=== PATIENT | female | born 1940 | race Caucasian/White ===

== ENCOUNTER → 2017-10-18 | Outpatient (CLI) | payer MEDICARE, OTHER ==
[2017-10-18 09:12] LABS: AUTOMATED NEUTROPHIL # 3.5 TH/MM3 (1.8-7.7); BASOPHIL % 0.5 % (0.0-2.0); EOSINOPHIL # 0.2 TH/MM3 (0-0.4); EOSINOPHIL % 3.8 % (0.0-4.0); HEMATOCRIT 42.9 % (35.0-46.0); HEMO FLAGS DIFF FINAL; LYMPH % 29.7 % (9.0-44.0); LYMPHOCYTE # 1.8 TH/MM3 (1.0-4.8); MEAN CELL VOLUME 89.7 FL (80.0-100.0); MEAN CORPUSCULAR HEMOGLOBIN 29.3 PG (27.0-34.0); MEAN CORPUSCULAR HGB CONC 32.6 % (32.0-36.0); MEAN PLATELET VOLUME 7.6 FL (7.0-11.0); MONO % 10.5 % (0.0-8.0); MONOCYTE # 0.7 TH/MM3 (0-0.9); NEUT % 55.5 % (16.0-70.0); PLATELET COUNT 276 TH/MM3 (150-450); RED BLOOD COUNT 4.78 MIL/MM3 (4.00-5.30); RED CELL DISTRIBUTION WIDTH 13.1 % (11.6-17.2); WHITE BLOOD COUNT 6.2 TH/MM3 (4.0-11.0)
[2017-10-18 09:15] LABS: BACTERIA, URINE OCC /hpf; BILIRUBIN, URINE NEG (NEG); BLOOD, URINE TRACE (NEG); COMMENT (UR) CULT NOT INDICATED; CULTURE IF INDICATED CULT NOT INDICATED; GLUCOSE,URINE NEG (NEG); KETONE, URINE NEG (NEG); MUCUS URINE FEW /lpf (OCC); NITRITE,URINE NEG (NEG); SQUAMOUS EPITHELIAL CELL URINE <1 /hpf (0-5); URINE COLOR LIGHT-YELLOW (YELLW/STRAW); URINE LEUKOCYTE ESTERASE TRACE (NEG)
[2017-10-18 09:21] LABS: APTT (PATIENT) 24.4 SEC (24.3-30.1)
[2017-10-18 09:39] LABS: ALBUMIN 3.7 GM/DL (3.4-5.0); ANION GAP 5 MEQ/L (5-15); AST (GOT) 23 U/L (15-37); BICARBONATE 28.5 MEQ/L (21.0-32.0); BLOOD UREA NITROGEN 14 MG/DL (7-18); CALCIUM 9.3 MG/DL (8.5-10.1); CHLORIDE 103 MEQ/L (98-107); CREATININE 0.91 MG/DL (0.50-1.00); GLOMERULAR FILTRATION RATE 60 ML/MIN (>89); GLUCOSE,FASTING 92 MG/DL (74-99); POTASSIUM 4.2 MEQ/L (3.5-5.1); SODIUM (NA) 136 MEQ/L (136-145)
[2017-10-18 09:40] LABS: ALT (GPT) 22 U/L (10-53)
[2017-10-18 09:42] LABS: ALKALINE PHOSPHATASE 96 U/L (45-117); TOTAL BILIRUBIN ADULT 0.4 MG/DL (0.2-1.0); TOTAL PROTEIN 7.8 GM/DL (6.4-8.2)
== END ==
LOC: CPRE 08:23
DX: Z79.01 Long term (current) use of anticoagulants (principal); N82.3 Fistula of vagina to large intestine
CPT/HCPCS: 36415; 71046; 80053; 81001; 85025; 85610; 85730; 93005

== ENCOUNTER 2017-10-25 11:38 | Inpatient (IN) | payer MEDICARE, OTHER ==
[~2017-10-25] VITALS: Ht 165.1 cm; Wt 90.1 kg
[~2017-10-25 11:38] MED LIST: IBUP-1129 PO; METO25TA3 PO; OMEP20TA93 PO
[2017-10-25] MEDS ORDERED: ALVIMOPAN 12 MG CAPSULE - On Call PO SCH (12:45)
[2017-10-25] MEDS ORDERED: METOPROLOL TARTRATE 25 MG TAB PO PRN (12:45)
[2017-10-25] MEDS ORDERED: CHLORHEXIDINE GLUCONATE 2 % 1 PACK (2 CLOTHS) TOPICAL PRN (12:45)
[2017-10-25] MEDS ORDERED: LACTATED RINGER'S 1000 ML IV PRN (12:45)
[2017-10-25] MEDS ORDERED: SODIUM CHLORID 0.9% 500 ML IV PRN (12:45)
[2017-10-25] MEDS ORDERED: INSULIN HUMAN REGULAR 1,000 UNITS/10 ML VIAL SQ PRN (12:45)
[2017-10-25] MEDS ORDERED: ceFAZolin INJ 1,000 MG VIAL ONE (12:51)
[2017-10-25] MEDS ORDERED: SODIUM CHLORIDE 0.9% INJ 100 ML ONE (12:51)
[2017-10-25] MEDS ORDERED: metroNIDAZOLE 500 MG INJ 100 ML IV ONE (12:51)
[2017-10-25] MEDS ORDERED: DEXT 5%-NACL 0.9% 1000 ML INJ 1,000 ML IV SCH (13:00)
[2017-10-25] MEDS ORDERED: METRONIDAZOLE 500 MG/100 ML ISONTONIC SOLN IV SCH (13:00)
[2017-10-25] MEDS ORDERED: ceFAZolin 1,000 MG/NS 100 ML IV SCH ×2 (13:00)
[2017-10-25] MEDS ORDERED: ASPI-516 PO (13:01)
[2017-10-25] MEDS ORDERED: APREPITANT 40 MG CAP PO ONE (13:45)
--- NOTE | 2017-10-25 14:31 | PD.OP ---
Operative Report Date of Surgery: Oct 25, 2017 Preoperative Diagnosis: Colovaginal fistula Postoperative Diagnosis: Same Procedure: Cystoscopy and bilateral ureteral catheter placement Anesthesia: LENI Surgeon: Christoph Saavedra [employer] Professor(s): None Resident Surgeon: None Operation and Findings: 77-year-old female with history of a colovesical fistula. Requests were made for bilateral ureteral catheter placements prior to exploratory laparotomy. Patient was prepped in the usual sterile fashion and placed in the dorsal lithotomy position. She received preprocedure bites and general endotracheal tube anesthesia was administered. 22 Thai scope was inserted in the bladder jackson cystoscopy did not reveal any abnormalities. The left ureteral orifices identified and a 5 Thai catheter was inserted into left ureteral orifice and up into the kidney. This was performed on the right side without difficulty. The catheters were then attached the Danielson. She tolerated procedure well. Christoph Saavedra DO Oct 25, 2017 14:31
[2017-10-25] MEDS ORDERED: ACETAMINOPHEN 1000 MG/100 ML 100 ML IV ONE (15:29)
[2017-10-25] MEDS ORDERED: PCA - TOTAL MG MORPHINE DELIVERED PER SHIFT SCH (16:00)
[2017-10-25] MEDS ORDERED: SODIUM CHLORIDE 0.9% FLUSH 10 ML FLUSH IV FLUSH PRN (16:00)
[2017-10-25] MEDS ORDERED: ACETAMINOPHEN/HYDROcodone 325 MG/5 MG TAB PO PRN (16:15)
[2017-10-25] MEDS ORDERED: Post-op Orders (for Pharmacy) XX ONE (16:15)
[2017-10-25] MEDS ORDERED: NALOXONE HCL 0.4 MG/ML AMP IV PUSH PRN (16:15)
[2017-10-25] MEDS ORDERED: DO NOT ADM ANY ANTICOAGULANT DRUGS PRN (16:16)
[2017-10-25] MEDS ORDERED: *ONDANSETRON 4 MG VIAL PERIprocedural Use ONLY ONE (16:28)
[2017-10-25] MEDS ORDERED: *morphine SULFATE 10 MG/ML PERIprocedure ONLY ONE ×2 (16:28→16:48)
[2017-10-25] MEDS ORDERED: POTASSIUM CHLOR 20 MEQ PREMIX 100 ML IV PRN (16:30)
[2017-10-25] MEDS: D5-LR + KCL 20 MEQ INJ 1,000 ML IV SCH ×2 (16:30→17:30)
[2017-10-25] MEDS ORDERED: BENZOCAINE 6 MG/MENTHOL 10 MG LOZENGE BUCCAL PRN (16:30)
[2017-10-25] MEDS ORDERED: POTASSIUM CHLOR 40 MEQ PREMIX 100 ML IV PRN (16:30)
[2017-10-25] MEDS ORDERED: MORPHINE SULFATE 30 MG/30 ML PCA IV SCH (16:30)
[2017-10-25] MEDS ORDERED: MORPHINE SULFATE 4 MG/ML INJ ONE (16:37)
[2017-10-25] MEDS ORDERED: *PROMETHAZINE 25 MG/ML VIAL PERIprocedural use ONLY ONE (16:48)
[2017-10-25] MEDS: ASPIRIN 81 MG CHEW TAB PO SCH (17:00)
[2017-10-25] MEDS ORDERED: HYDROmorphone HCL PF 2 MG/ML VIAL ONE (17:18)
[2017-10-25 17:19] LABS: AUTOMATED NEUTROPHIL # 12.9 TH/MM3 (1.8-7.7); BASOPHIL % 0.3 % (0.0-2.0); EOSINOPHIL # 0.1 TH/MM3 (0-0.4); EOSINOPHIL % 0.6 % (0.0-4.0); HEMATOCRIT 42.6 % (35.0-46.0); HEMOGLOBIN 14.4 GM/DL (11.6-15.3); LYMPH % 12.9 % (9.0-44.0); LYMPHOCYTE # 2.1 TH/MM3 (1.0-4.8); MEAN CELL VOLUME 89.3 FL (80.0-100.0); MEAN CORPUSCULAR HEMOGLOBIN 30.2 PG (27.0-34.0); MEAN CORPUSCULAR HGB CONC 33.8 % (32.0-36.0); MEAN PLATELET VOLUME 8.3 FL (7.0-11.0); MONO % 7.2 % (0.0-8.0); MONOCYTE # 1.2 TH/MM3 (0-0.9); PLATELET COUNT 245 TH/MM3 (150-450); RED BLOOD COUNT 4.77 MIL/MM3 (4.00-5.30); RED CELL DISTRIBUTION WIDTH 13.7 % (11.6-17.2); WHITE BLOOD COUNT 16.4 TH/MM3 (4.0-11.0)
[2017-10-25 17:25] LABS: BICARBONATE 23.8 MEQ/L (21.0-32.0); CALCIUM 7.5 MG/DL (8.5-10.1); CREATININE 0.66 MG/DL (0.50-1.00)
[2017-10-25] MEDS: FUROSEMIDE 20 MG/2 ML VIAL IV PUSH SCH (17:37)
[2017-10-25] MEDS: METOCLOPRAMIDE HCL 10 MG/2 ML VIAL IVS SCH (17:38)
[2017-10-25] MEDS ORDERED: *MEPERIDINE 25 MG INJ VIAL PERIprocedural Use ONLY ONE (18:43)
[2017-10-25 20:45] VITALS: BP 109/58; PULSE 65; RESP 16; TEMP 97.7; O2SAT 98
[2017-10-25 21:00] VITALS: BP 113/56; PULSE 66; RESP 16; TEMP 98; O2SAT 100
[2017-10-25] MEDS: SODIUM CHLORIDE 0.9% FLUSH 10 ML FLUSH IV FLUSH SCH (21:00)
[2017-10-25 22:00] VITALS: BP 85/48; PULSE 64; O2SAT 98
[2017-10-25 22:15] VITALS: BP 84/50; PULSE 66; O2SAT 98
[2017-10-25 22:30] VITALS: BP 80/44; PULSE 66; O2SAT 97
[2017-10-25 23:00] VITALS: BP 110/53; PULSE 66; RESP 16; TEMP 98; O2SAT 97
[2017-10-25] MEDS: metroNIDAZOLE 500 MG INJ 100 ML IV SCH (23:20)
[2017-10-26] VITALS (16 sets, daily range): BP systolic 99–153; BP diastolic 50–68; PULSE 58–73; RESP 16–18; TEMP 97.8–99.2; O2SAT 93–98
[2017-10-26] MEDS: METOCLOPRAMIDE HCL 10 MG/2 ML VIAL IVS SCH ×5 (01:17→23:48)
[2017-10-26 06:11] LABS: AUTOMATED NEUTROPHIL # 11.8 TH/MM3 (1.8-7.7); BASOPHIL % 0.2 % (0.0-2.0); HEMATOCRIT 39.7 % (35.0-46.0); HEMOGLOBIN 13.1 GM/DL (11.6-15.3); LYMPH % 7.4 % (9.0-44.0); MEAN CELL VOLUME 89.6 FL (80.0-100.0); MEAN CORPUSCULAR HEMOGLOBIN 29.7 PG (27.0-34.0); MEAN CORPUSCULAR HGB CONC 33.1 % (32.0-36.0); MEAN PLATELET VOLUME 7.7 FL (7.0-11.0); MONO % 8.2 % (0.0-8.0); MONOCYTE # 1.1 TH/MM3 (0-0.9); NEUT % 84.2 % (16.0-70.0); PLATELET COUNT 254 TH/MM3 (150-450); RED BLOOD COUNT 4.43 MIL/MM3 (4.00-5.30); RED CELL DISTRIBUTION WIDTH 13.7 % (11.6-17.2); WHITE BLOOD COUNT 13.9 TH/MM3 (4.0-11.0)
[2017-10-26] MEDS: metroNIDAZOLE 500 MG INJ 100 ML IV SCH ×2 (06:42→14:45)
[2017-10-26 06:50] LABS: BICARBONATE 28.7 MEQ/L (21.0-32.0); CALCIUM 7.9 MG/DL (8.5-10.1); CREATININE 0.99 MG/DL (0.50-1.00)
[2017-10-26] MEDS: SODIUM CHLORIDE 0.9% FLUSH 10 ML FLUSH IV FLUSH SCH ×2 (08:23→20:36)
[2017-10-26] MEDS: METOPROLOL TARTRATE 25 MG TAB PO SCH (08:23)
[2017-10-26] MEDS: PANTOPRAZOLE SODIUM 40 MG VIAL IVP SCH (08:23)
[2017-10-26] MEDS: ASPIRIN 81 MG CHEW TAB PO SCH (08:23)
[2017-10-26] MEDS: FUROSEMIDE 20 MG/2 ML VIAL IV PUSH SCH ×2 (08:25→18:07)
[2017-10-26] MEDS ORDERED: ALVIMOPAN 12 MG CAPSULE - Post-op dosing PO SCH (09:00)
[2017-10-26] MEDS: KETOROLAC TROMETHAMINE 30 MG/ML (IVP) VIAL IVP PRN (14:53)
--- NOTE | 2017-10-26 15:57 | HHI.PR ---
Subjective Remarks No N or V. No BMs. C/O pain. Objective Vital Signs Date Time Temp Pulse Resp B/P (MAP) Pulse Ox O2 Delivery O2 Flow Rate FiO2 10/26/17 15:01 99.2 61 18 153/68 (96) 96 10/26/17 15:01 63 10/26/17 14:00 62 10/26/17 13:00 60 10/26/17 12:00 58 10/26/17 11:45 97.9 61 18 99/54 (69) 96 10/26/17 11:00 60 10/26/17 10:00 66 10/26/17 09:00 70 10/26/17 08:33 96 Nasal Cannula 2.00 10/26/17 08:01 97.8 69 18 101/50 (67) 97 10/26/17 08:00 68 10/26/17 07:01 73 10/26/17 04:00 67 16 115/56 (75) 98 10/26/17 03:30 98.4 68 16 107/53 (71) 93 10/25/17 23:00 98.0 66 16 110/53 (72) 97 10/25/17 22:30 66 80/44 (56) 97 10/25/17 22:15 66 84/50 (61) 98 10/25/17 22:00 64 85/48 (60) 98 10/25/17 21:00 98.0 66 16 113/56 (75) 100 10/25/17 20:45 97.7 65 16 109/58 (75) 98 10/25/17 20:00 62 12 122/58 (79) 100 Nasal Cannula 3 10/25/17 19:00 97.6 61 12 96/51 (66) 100 Nasal Cannula 3 10/25/17 18:00 58 12 161/77 (105) 100 Nasal Cannula 3 10/25/17 17:55 14 10/25/17 17:30 55 14 159/70 (99) 97 Nasal Cannula 3 10/25/17 17:15 54 14 163/72 (102) 100 Nasal Cannula 3 10/25/17 17:00 53 13 162/70 (100) 100 Nasal Cannula 3 10/25/17 16:45 59 12 169/76 (107) 100 Nasal Cannula 3 10/25/17 16:30 62 14 170/79 (109) 100 Nasal Cannula 3 10/25/17 16:20 97.5 75 17 163/77 (105) 99 Nasal Cannula 3 I/O 10/25/17 10/25/17 10/25/17 10/26/17 10/26/17 10/26/17 07:00 15:00 23:00 07:00 15:00 23:00 Intake Total 3018 ml 0 ml Output Total 1750 ml 695 ml Balance 1268 ml -695 ml Intake Oral 0 ml IV Total 518 ml Other 2500 ml Output Urine Total 1400 ml 650 ml Drainage Total 150 ml 45 ml Estimated Blood Loss 200 ml Result Diagram: 10/26/1740810/26/17408 Objective Remarks VS-S Abd:Flat,soft,dressing dry I&Os-OK Labs-OK Assessment and Plan Assessment and Plan Stable. POD#1 Transfer to 7N. D/C tele. IV to 125, OOB. D/C FELT HOOKER and start PO pain meds. Ureteral catheter removed. D/C farzaneh in Patrick Porter MD Oct 26, 2017 15:57
[2017-10-26] MEDS: D5-LR + KCL 20 MEQ INJ 1,000 ML IV SCH ×2 (16:30→20:35)
[2017-10-26] MEDS: ALVIMOPAN 12 MG CAPSULE PO SCH (20:36)
[2017-10-26] MEDS: HEPARIN SODIUM - SQ 10,000 UNITS/ML VIAL SQ SCH (20:36)
[2017-10-27] VITALS (7 sets, daily range): BP systolic 121–164; BP diastolic 57–84; PULSE 62–82; RESP 16–20; TEMP 98–98.8; O2SAT 93–97
[2017-10-27] MEDS: D5-LR + KCL 20 MEQ INJ 1,000 ML IV SCH ×3 (00:30→16:30)
[2017-10-27] MEDS: KETOROLAC TROMETHAMINE 30 MG/ML (IVP) VIAL IVP PRN ×2 (02:14→20:35)
[2017-10-27 05:47] LABS: AUTOMATED NEUTROPHIL # 8.9 TH/MM3 (1.8-7.7); BASOPHIL % 0.3 % (0.0-2.0); EOSINOPHIL # 0.2 TH/MM3 (0-0.4); EOSINOPHIL % 1.9 % (0.0-4.0); HEMATOCRIT 34.9 % (35.0-46.0); HEMOGLOBIN 11.5 GM/DL (11.6-15.3); LYMPH % 17.1 % (9.0-44.0); LYMPHOCYTE # 2.2 TH/MM3 (1.0-4.8); MEAN CELL VOLUME 90.1 FL (80.0-100.0); MEAN CORPUSCULAR HEMOGLOBIN 29.6 PG (27.0-34.0); MEAN CORPUSCULAR HGB CONC 32.9 % (32.0-36.0); MEAN PLATELET VOLUME 7.5 FL (7.0-11.0); MONO % 10.2 % (0.0-8.0); MONOCYTE # 1.3 TH/MM3 (0-0.9); NEUT % 70.5 % (16.0-70.0); PLATELET COUNT 218 TH/MM3 (150-450); RED BLOOD COUNT 3.87 MIL/MM3 (4.00-5.30); RED CELL DISTRIBUTION WIDTH 13.5 % (11.6-17.2); WHITE BLOOD COUNT 12.7 TH/MM3 (4.0-11.0)
[2017-10-27] MEDS: METOCLOPRAMIDE HCL 10 MG/2 ML VIAL IVS SCH ×4 (05:54→23:03)
[2017-10-27 06:16] LABS: BICARBONATE 29.2 MEQ/L (21.0-32.0); CALCIUM 7.8 MG/DL (8.5-10.1); CREATININE 0.81 MG/DL (0.50-1.00)
--- NOTE | 2017-10-27 07:01 | HHI.PR ---
Subjective Remarks POD#2 LAR reports pain Objective Vital Signs Date Time Temp Pulse Resp B/P (MAP) Pulse Ox O2 Delivery O2 Flow Rate FiO2 10/27/17 04:50 98.1 62 18 125/57 (79) 96 10/27/17 00:00 98.2 70 18 159/71 (100) 97 10/26/17 19:35 98.5 65 18 104/56 (72) 97 10/26/17 16:01 65 10/26/17 15:01 99.2 61 18 153/68 (96) 96 10/26/17 15:01 63 10/26/17 14:00 62 10/26/17 13:00 60 10/26/17 12:00 58 10/26/17 11:45 97.9 61 18 99/54 (69) 96 10/26/17 11:00 60 10/26/17 10:00 66 10/26/17 09:00 70 10/26/17 08:33 96 Nasal Cannula 2.00 10/26/17 08:01 97.8 69 18 101/50 (67) 97 10/26/17 08:00 68 10/26/17 07:01 73 I/O 10/26/17 10/26/17 10/26/17 10/27/17 10/27/17 10/27/17 07:00 15:00 23:00 07:00 15:00 23:00 Intake Total 0 ml 100 ml 1060 ml 420 ml Output Total 695 ml 600 ml 1245 ml Balance -695 ml 100 ml 460 ml -825 ml Intake Oral 0 ml 960 ml 420 ml IV Total 100 ml 100 ml Output Urine Total 650 ml 575 ml 1175 ml Drainage Total 45 ml 25 ml 70 ml Result Diagram: 10/27/17 0457 10/27/17 0457 Objective Remarks Abdomen soft, nondistended, tender Wound clean QUINCY serosanguinous Assessment and Plan Assessment and Plan Mobilize Transfer to [facility] Advance diet Kelle Caba MD Oct 27, 2017 07:01
[2017-10-27] MEDS: HEPARIN SODIUM - SQ 10,000 UNITS/ML VIAL SQ SCH ×2 (08:15→20:32)
[2017-10-27] MEDS: ALVIMOPAN 12 MG CAPSULE PO SCH ×2 (08:15→20:32)
[2017-10-27] MEDS: ASPIRIN 81 MG CHEW TAB PO SCH (08:16)
[2017-10-27] MEDS: METOPROLOL TARTRATE 25 MG TAB PO SCH (08:16)
[2017-10-27] MEDS: PANTOPRAZOLE SODIUM 40 MG VIAL IVP SCH (08:17)
[2017-10-27] MEDS: SODIUM CHLORIDE 0.9% FLUSH 10 ML FLUSH IV FLUSH SCH ×2 (08:17→20:32)
[2017-10-27] MEDS: ACETAMINOPHEN/HYDROcodone 325 MG/5 MG TAB PO PRN ×3 (08:17→23:00)
[2017-10-27] MEDS: FUROSEMIDE 20 MG/2 ML VIAL IV PUSH SCH ×2 (08:33→17:18)
[2017-10-27] MEDS: ENALAPRILAT 1.25 MG/ML VIAL IV PUSH PRN (23:00)
[2017-10-28] VITALS (7 sets, daily range): BP systolic 106–165; BP diastolic 54–86; PULSE 65–82; RESP 16–20; TEMP 97.9–98.6; O2SAT 93–96
[2017-10-28] MEDS: ACETAMINOPHEN/HYDROcodone 325 MG/5 MG TAB PO PRN ×5 (04:20→23:58)
[2017-10-28] MEDS: D5-LR + KCL 20 MEQ INJ 1,000 ML IV SCH (04:20)
[2017-10-28] MEDS: KETOROLAC TROMETHAMINE 30 MG/ML (IVP) VIAL IVP PRN (04:28)
[2017-10-28] MEDS: METOCLOPRAMIDE HCL 10 MG/2 ML VIAL IVS SCH ×3 (05:58→16:34)
[2017-10-28] MEDS: ALVIMOPAN 12 MG CAPSULE PO SCH ×2 (08:16→20:43)
[2017-10-28] MEDS: HEPARIN SODIUM - SQ 10,000 UNITS/ML VIAL SQ SCH ×2 (08:16→20:44)
[2017-10-28] MEDS: PANTOPRAZOLE SODIUM 40 MG VIAL IVP SCH (08:16)
[2017-10-28] MEDS: SODIUM CHLORIDE 0.9% FLUSH 10 ML FLUSH IV FLUSH SCH ×2 (08:17→20:43)
[2017-10-28] MEDS: ASPIRIN 81 MG CHEW TAB PO SCH (08:17)
[2017-10-28] MEDS: METOPROLOL TARTRATE 25 MG TAB PO SCH (08:17)
[2017-10-28] MEDS: FUROSEMIDE 20 MG/2 ML VIAL IV PUSH SCH (09:00)
--- NOTE | 2017-10-28 10:38 | HHI.PR ---
Subjective Remarks POD#3 LAR 'better' Objective Vital Signs Date Time Temp Pulse Resp B/P (MAP) Pulse Ox O2 Delivery O2 Flow Rate FiO2 10/28/17 07:15 98.1 68 20 133/86 (102) 94 10/28/17 07:15 94 Room Air 10/28/17 03:50 98.0 65 16 134/61 (85) 94 10/28/17 00:08 106/54 (71) 10/27/17 23:00 Bi-Pap 10/27/17 23:00 98.0 67 16 164/74 (104) 96 10/27/17 19:45 98.7 69 16 163/76 (105) 95 10/27/17 19:45 95 Room Air 10/27/17 15:00 98.4 82 20 133/63 (86) 93 10/27/17 11:00 98.4 82 20 121/57 (78) 93 I/O 10/27/17 10/27/17 10/27/17 10/28/17 10/28/17 10/28/17 07:00 15:00 23:00 07:00 15:00 23:00 Intake Total 420 ml 890 ml 1198 ml Output Total 1245 ml 590 ml 1230 ml Balance -825 ml 300 ml -32 ml Intake Oral 420 ml 480 ml 480 ml IV Total 410 ml 718 ml Output Urine Total 1175 ml 550 ml 1200 ml Drainage Total 70 ml 40 ml 30 ml Bladder Scan Volume Amount 900 ml # Voids 3 # Bowel Movements 0 Result Diagram: 10/27/177 10/27/17456 Objective Remarks Abdomen soft, nondistended, tender Wound mild area of erythema - most likely secondary to binder QUINCY serosanguinous Assessment and Plan Assessment and Plan Mobilize Transfer to [facility] Advance diet Decrease IVF D/C Kelle Pan MD Oct 28, 2017 10:38
[2017-10-28] MEDS: ENALAPRILAT 1.25 MG/ML VIAL IV PUSH PRN ×2 (16:34→20:46)
--- NOTE | 2017-10-28 20:24 | MP ---
cc: QUENTIN RICE M.D., SHAWN TOLLAND, JOHN T. M.D. WADSWORTH, LYLE E. MD DATE OF SURGERY 10/25/2017 PREOPERATIVE DIAGNOSIS Probable colovaginal fistula. POSTOPERATIVE DIAGNOSIS Probable colovaginal fistula. PROCEDURE 1. Rectosigmoidectomy, LAR. 2. Repair of umbilical hernia. 3. Omental flap. 4. Proctosigmoidoscopy. ANESTHESIA General endotracheal. SURGEON Dr. Foss. [employer]ENT Dr. Sara Block MS-3 OPERATING TIME One hour and 40 minutes ESTIMATED BLOOD LOSS 25 mL. OPERATIVE FINDINGS This patient had an unusual history of a sinus tract or fistula from the posterior vagina just posterior to the cervix. She has not had a hysterectomy. She has not had any known bouts of diverticulitis but on CT scan she was found to have extensive diverticulosis and on colonoscopy by Dr. Quentin Rice she was found to have extensive diverticulosis in the sigmoid colon. Because it was felt that she probably had a colovaginal fistula even though she has not had a hysterectomy, resection was recommended and she was referred to ar by Dr. Quentin Rice and Dr. Amandeep Wilson. Dr. Christoph Saavedra placed bilateral ureteral catheters and exploration of the abdominal cavity revealed that the liver, the gallbladder, small bowel and the remainder of the colon were normal. She did have a loop of sigmoid colon that was mildly indurated sitting down in the cul-de-sac anterior to the rectum, posterior to the uterus and vagina, however, it did not at least seem to be firmly attached to the posterior wall of the vagina and it was easily delivered up out of the pelvis. Upon inspecting the posterior wall of the vagina there was an indentation and a divot there and there was an obvious hole that went toward the vaginal lumen and a tonsil clamp was placed in that hole and the peritoneum was opened and it protruded right at the site where the sinus tract was seen in the office. Dr. Ruiz did vaginoscopy and looked at it and there seemed to be a small opening there but when he insufflated air with saline solution in the pelvis no air leak was found to retrograde back into the pelvis. This was felt to be the fistula site and it was felt to have already been divided from the colon and since she had a moderate amount of sigmoid diverticulosis with chronic diverticulitis, a rectosigmoid ectopy was done with a colorectal anastomosis. Once this was completed the omentum had been previously mobilized from the transverse colon and an omental flap was placed down between the colorectal anastomosis and the vagina. The vaginal area was not treated in any other way, it was not sutured, it was simply left alone to seal on its own. OPERATIVE TECHNIQUE The patient was placed on the table in supine position after adequate general endotracheal anesthesia. The legs were placed in the perineal lithotomy position and the abdomen and perineum were prepped and draped in usual manner. Transverse infraumbilical skin incision was made and carried down through subcutaneous tissue and the rectus muscles and the peritoneal cavity was entered with above-mentioned findings. Next our attention was turned to the sigmoid which was delivered up out of the pelvis and Dr. Ruiz did a vaginoscopy and looked in the vagina and found the site where this same apparent fistula in the pelvis was seen in the posterior vaginal wall. It did not seem to penetrate fully through and we did not completely create a fistula there. Once this was done we mobilized the sigmoid and descending colon and splenic flexure and transverse colon and the omentum was mobilized from the transverse colon as mentioned above entering the lesser sac. The full splenic flexure was mobilized as well and then our attention was turned to the inferior mesenteric artery which is doubly clamped, cut, and doubly ligated with 0 Vicryl ligature and then the inferior mesenteric vein was clamped, cut and ligated as well. The lateral pelvic perineum was incised bilaterally and the retrorectal space was entered and the dissection was taken down in the pelvis posteriorly to almost the pelvic floor. Anteriorly the dissection was taken down laterally and anteriorly to the cul-de-sac but not entering the cul-de-sac or the retroperitoneal portion of the anterior rectum. A division point in the rectum was chosen in the mid to upper rectum and the mesorectum was successively clamped, cut and ligated and the rectum was cleared and pursestring stapling device was placed on the rectum. We then chose a point for division of the sigmoid colon and the remainder of the sigmoid mesentery was clamped, cut and ligated ligating the marginal vessel as well. Sigmoid colon was then divided and the pursestring stapling device was placed prior to that. The anvil of the 29 ILS stapling device was placed in the bowel and the pursestring was tied and then the ILS device was placed transanally by Dr. Ruiz and the distal pursestring was tied and the instruments connected, closed and fired creating a circular anastomosis. The blood supply to the bowel was excellent and there was no tension on the bowel. Dr. Ruiz then did proctosigmoidoscopy examination insufflating air into the rectum with saline solution in the pelvis and no air leaks were identified. We then irrigated out the abdominal cavity and the pelvis with saline solution using several liters and it was aspirated dry. A number flat 10 Darian drain was placed down in the pelvis and brought out through a separate stab wound in the right lower quadrant and then the bowels were replaced in the abdominal contents in an inside sales coordinator manner and the abdominal contents were closed in two layers using a double-stranded #1 PDS for the posterior rectus sheath and double-stranded #1 PDS for the anterior rectus sheath irrigating between those layers. Next subcutaneous tissue was irrigated thoroughly with saline solution, aspirated dry and the skin was closed with running 3-0 Vicryl subcuticular suture. Prior to closure of the abdomen the omental flap was taken down the left colic gutter and placed between the bowel anastomosis and the posterior wall of the vagina to make sure that the fistula closed. Sponge, needle and instrument counts were reported as correct. Estimated blood loss was 25 mL. Operating time was 1 hour and 40 minutes. It should be mentioned that she had an umbilical hernia and prior to closure, the umbilical hernia was repaired with several interrupted #1 PDS sutures in a [id number] manner. Once this hernia was closed then the abdominal cavity was closed as mentioned above. The patient tolerated the procedure well and left the operating room in good condition. MD LISSETTE Kirby/GUERLINE /6:20 PM /7:16 PM
[2017-10-29 04:39] VITALS: BP 131/65; PULSE 88; RESP 18; TEMP 98.6; O2SAT 92
[2017-10-29] MEDS: ACETAMINOPHEN/HYDROcodone 325 MG/5 MG TAB PO PRN ×2 (04:47→08:55)
[2017-10-29] MEDS: METOCLOPRAMIDE HCL 10 MG/2 ML VIAL IVS SCH ×2 (06:00)
[2017-10-29 07:00] VITALS: BP 159/71; PULSE 78; RESP 17; TEMP 98.4; O2SAT 93
[2017-10-29] MEDS: D5-LR + KCL 20 MEQ INJ 1,000 ML IV SCH (08:49)
[2017-10-29] MEDS: METOPROLOL TARTRATE 25 MG TAB PO SCH (08:53)
[2017-10-29] MEDS: PANTOPRAZOLE SODIUM 40 MG VIAL IVP SCH (08:54)
[2017-10-29] MEDS: ASPIRIN 81 MG CHEW TAB PO SCH (08:54)
[2017-10-29] MEDS: ALVIMOPAN 12 MG CAPSULE PO SCH (08:54)
[2017-10-29] MEDS: HEPARIN SODIUM - SQ 10,000 UNITS/ML VIAL SQ SCH (08:55)
[2017-10-29] MEDS: SODIUM CHLORIDE 0.9% FLUSH 10 ML FLUSH IV FLUSH SCH (08:56)
--- NOTE | 2017-10-29 09:48 | HHI.DCPOC ---
Discharge Care Plan Diagnosis: (1) Sigmoid colectomy (2) Umbilical hernia repair (3) Colovaginal fistula Your Health Problems Are: Difficulty with ADL Incision/Drains Appetite Changes Irregular Bowel Function Exercise Tolerance Goals to Promote Your Health * To prevent worsening of your condition and complications * To maintain your health at the optimal level Directions to Meet Your Goals Take your medications as prescribed Follow your dietary instruction Follow activity as directed Keep your appointments as scheduled Take your immunizations and boosters as scheduled If your symptoms worsen call your PCP, if no PCP go to Urgent Care Center or Emergency Room Smoking is Dangerous to Your Health. Avoid second hand smoke Call the 24-hour hour crisis hotline for domestic abuse at Patrick Foss MD Oct 29, 2017 09:48
[2017-10-29 10:29] VITALS: RESP 17
== END 2017-10-29 11:50 | disposition home or self-care (01) | DRG 330 ==
LOC: HSDI 11:38 → EDUNIT# 13:30 → HCPC 20:17
PROVIDERS: ADMIT Colon & Rectal Surgery; ATTEND Colon & Rectal Surgery
PROC: 0WQF0ZZ Repair Abdominal Wall, Open Approach (ICD-10-PCS; 2017-10-25)
PROC: 0UJH8ZZ Inspection of Vagina and Cul-de-sac, Via Natural or Artificial Opening Endoscopic (ICD-10-PCS; 2017-10-25)
PROC: 0DJD8ZZ Inspection of Lower Intestinal Tract, Via Natural or Artificial Opening Endoscopic (ICD-10-PCS; 2017-10-25)
PROC: 0TJB8ZZ Inspection of Bladder, Via Natural or Artificial Opening Endoscopic (ICD-10-PCS; 2017-10-25)
PROC: 0T9880Z Drainage of Bilateral Ureters with Drainage Device, Via Natural or Artificial Opening Endoscopic (ICD-10-PCS; 2017-10-25)
PROC: 0DTN0ZZ Resection of Sigmoid Colon, Open Approach (ICD-10-PCS; principal; 2017-10-25 13:56)
PROC: 0DBP0ZZ Excision of Rectum, Open Approach (ICD-10-PCS; 2017-10-25 13:56)
DX: N82.3 Fistula of vagina to large intestine (principal); K57.32 Diverticulitis of large intestine without perforation or abscess without bleeding; I10 Essential (primary) hypertension; K42.9 Umbilical hernia without obstruction or gangrene; K57.30 Diverticulosis of large intestine without perforation or abscess without bleeding; Z87.891 Personal history of nicotine dependence
CPT/HCPCS: 76937; 80048; 85025; 86850; 86900; 86901; 88307; 94150; C9113; J0131; J0690; J1170; J1644; J1885; J1940; J2175; J2270; J2405; J2550; J2765; J3010; J3480; J7120; J8501